=== PATIENT | male | born 1945 | race Caucasian/White ===

== ENCOUNTER 2018-01-19 17:21 | Emergency (ER) | payer OTHER ==
[2018-01-19 17:29] VITALS: BMI 23.3
[2018-01-19] MEDS ORDERED: TORADOL 30 MG VIAL IM ONE (17:51)
[2018-01-19] MEDS ORDERED: TORADOL 30 MG VIAL ONE (17:53)
--- NOTE | 2018-01-19 17:54 | DR.EXTPAIN ---
HPI - Time seen Time seen: 18:29 (seen on arrival to room) - PCP Primary Care Physician: DR MOTT, [place] - HPI Comment HPI Comment: Pt relates that he's had multiple workups for this but no one can find anything wrong with him. Has been referred to pain clinic. Pt relates migratory chest and abd pain that goes ffom front to back, side to side at times. Left lower chest wall today, clesrly tender to touch. No hx rash or shingles but symptoms reminiscent of this. - Complaint/Symptoms Chief Complaint:: PT HAS BEEN HURTING IN HIS CHEST FOR 4 WEEKS, HAS BEEN TO THE [facility] 4 TIMES, THE LAST TIME 4 DAYS AGO. WENT TO THE [facility] 3 DAYS AGO BUT LEFT BEFORE THEY SEEN A DOCTOR. - Nurses notes reviewed Nurses Notes Review: Yes - Source History Provided: Patient, Family Member - Mode of arrival Mode of Arrival: Ambulatory - Timing Onset of Chief Complaint: 12/22/17 - Associated signs and symptoms Associated Signs and Symptoms: Pleuritic Chest Pain PMH - PMH Past Medical History: No Past Surgical History: Yes Past Surgical History Comment: NECK SURGERY - Family History History of Family Medical Conditions: No - Social History Does patient currently use any type of tobacco product: No Have you used tobacco products in the last 12 months: No Type of Tobacco Use: None Does any household member use tobacco: No Alcohol Use: None Do you use any recreational Drugs:: No Lives With: Family Lives Where: Home - infectious screening In the last 2 months have you had wt loss of >10#?: NO Have you had fever, night sweats or hemotysis?: No Have you traveled outside the country in the last 6 months?: No Isolation: Standard ROS - Review of Systems Constitutional: No Symptoms Reported, Loss of Appetite Eyes: No Symptoms Reported ENTM: No Symptoms Reported Respiratoy: No Symptoms Reported Neurological: Weakness (generalized) Musculoskeletal: Chest wall Integumentary: No Symptoms Reported. negative: Rash Hematologic/Lymphatic: No Symptoms Reported Endocrine: No Symptoms Reported Psychiatric: No Symptoms Reported All Other Systems: Reviewed and Negative PE - Vital Signs Vitals: Temperature 98.9 F Pulse Rate 110 Respiratory Rate 16 Blood Pressure 150/67 O2 Sat by Pulse Oximetry 96 - General Limitations: No Limitations General Appearance: Alert, In No Apparent Distress - Head Head Exam: Other (bruise under rt eye from fall several days ago) - Eyes Eye exam: Normal Appearance - ENT ENT Exam: Normal Exam, Normal Oropharynx - Neck Neck Exam: Normal Inspection - Chest Chest Inspection: Normal Inspection, Symmetric Chest Wall Rise, Tenderness, Other (tender left lower ribs. Overlying skin normal). negative: Rash, Abscess - Respiratory Respiratory Exam: Normal Lung Sounds Bilat, Chest Wall Tenderness. negative: Accessory Muscle Use, Prolonged Expiratory Phase, Respiratory Distress, Stridor Respiratory Exam: Bilateral Clear to Auscultation - Cardiovascular Cardiovascular Exam: Regular Rate, Normal Rhythm, Normal Heart Sounds. negative : Systolic Murmur, Diastolic Murmur - Abdominal Exam Abdominal Exam: Normal Inspection, Normal Bowel Sounds, Soft. negative: Distention, Tenderness, Guarding, Rebound - Extremities Extremities Exam: Normal Inspection, Full ROM, Tenderness - Upper Extremities Shoulder Exam: Normal Inspection, Full ROM - Lower Extremities Neurovascular/Tendon Exam: Normal Capillary Refill Gait Exam: Observed and Normal - Neurological Neurological Exam: Alert, Oriented X3 - Psychiatric Psychiatric Exam: Normal Affect, Normal Mood - Skin Skin Exam: Warm, Dry, Intact, Normal Color. negative: Rash - Diagnosis Discharge Problem: Chest wall discomfort - Discharge Plan Disposition: HOME, SELF-CARE Condition: Stable Prescriptions: Diclofenac Sodium/Misoprostol [Arthrotec 50 50-0.2 mg] 1 tab PO BID PRN #30 tab PRN Reason: - Follow ups/Referrals Follow ups/Referrals: [facility],None [Primary Care Provider] - 3 days - Instructions Instructions: Acute Pain, Adult, Chest Wall Pain, [id number] Additional Notes - Additional Notes Additional Notes: sig relief with toradol. Agreed with pt to not repeat w/u today. Will Rx arthrotec as NSAID gave him sig relief
[2018-01-19 18:43] VITALS: BP 119/76
== END 2018-01-19 18:43 | disposition home or self-care (01) ==
LOC: ER 17:36
DX: R07.89 Other chest pain (principal)
CPT/HCPCS: 96372; 99282; J1885